=== PATIENT | female | born 1965 | race Caucasian/White ===

== ENCOUNTER 2019-11-22 19:20 | Emergency (ER) | payer OTHER ==
--- NOTE | 2019-11-22 19:33 | PDOC ---
Rapid Medical Evaluation Time Seen by Provider: 11/22/19 19:23 Medical Evaluation: 11/22/19 19:24 CC: here for fb removal from foot (broken sewing needle) x 1 week sent by RAYMOND kelly. no hx diabetes, no c/o increased swelling or redness, on po abx (prophy) exam: no visabel FB, tender to sole and base of 3-4th toe of left foot, no erythema or edema, no streaking Plan: covid, and consult compensation analyst Discharge Disposition - Diagnosis Foreign body in foot - Referrals - Patient Instructions - Post Discharge Activity
[2019-11-22 19:41] VITALS: BP 157/97; PULSE 98; TEMP 97.9; BMI 27.3
--- NOTE | 2019-11-22 19:58 | PDOC ---
History of Present Illness - General Chief Complaint: Foreign Body (FB) Stated Complaint: OBJECT IN FOOT Time Seen by Provider: 11/22/19 19:23 History Source: Patient Exam Limitations: No Limitations Past History - Travel History Traveled outside of the country in the last 30 days: No Close contact w/someone who was outside of country & ill: No - Medical History Allergies/Adverse Reactions: Allergies Allergy/AdvReac Type Severity Reaction Status Date / Time Sulfa (Sulfonamide Allergy Verified 11/27/19 10:05 Antibiotics) Home Medications: Ambulatory Orders Cefazolin [Ancef -] 500 mg PO QID 11/27/19 Fenofibrate 160 mg PO DAILY 11/27/19 Levothyroxine [Synthroid -] 125 mcg PO DAILY 11/27/19 COPD: No Hypercholesterolemia: Yes Thyroid Disease: Yes (hypothyroid) Other medical history: "Methadone maintenance" - Reproductive History Is Patient Now?: No - Psycho-Social/Smoking History Smoking History: Never smoked Review of Systems - Review of Systems Able to Perform ROS?: Yes Comments:: 11/22/19 21:50 CONSTITUTIONAL: Absent: fever, chills, diaphoresis, generalized weakness, malaise, loss of appetite HEENT: Absent: rhinorrhea, nasal congestion, throat pain, throat swelling, difficulty swallowing, mouth swelling, ear pain, eye pain, visual Changes CARDIOVASCULAR: Absent: chest pain, loss of consciousness, palpitations, irregular heart rate, peripheral edema RESPIRATORY: Absent: cough, shortness of breath, dyspnea with exertion, orthopnea, wheezing, stridor, hemoptysis GASTROINTESTINAL: Absent: abdominal pain, abdominal distension, nausea, vomiting, diarrhea, constipation, melena, hematochezia GENITOURINARY: Absent: dysuria, frequency, urgency, hesitancy, hematuria, flank pain, genital pain MUSCULOSKELETAL: Absent: myalgia, arthralgia, joint swelling SKIN: Absent: rash, itching, pallor HEMATOLOGIC/IMMUNOLOGIC: Absent: easy bleeding, easy bruising, lymphadenopathy, frequent infections ENDOCRINE: Absent: unexplained weight gain, unexplained weight loss, heat intolerance, cold intolerance NEUROLOGIC: Absent: headache, focal weakness or paresthesias, dizziness, unsteady gait, seizure, mental status changes, bladder or bowel incontinence PSYCHIATRIC: Absent: anxiety, depression, suicidal or homicidal ideation, hallucinations. Is the patient limited Stateless proficient: No *Physical Exam - Vital Signs Last Vital Signs Temp Pulse Resp BP Pulse Ox 97.9 F 98 H 20 157/97 99 11/22/19 19:30 11/22/19 19:30 11/22/19 19:30 11/22/19 19:30 11/22/19 19:30 - Physical Exam 11/22/19 21:50 GENERAL: Well developed, well nourished. Awake and alert. No acute distress. HEENT: Normocephalic, atraumatic. PERRLA, EOMI. No conjunctival pallor. Sclera are non- icteric. Moist mucous membranes. Oropharynx is clear. NECK: Supple. Full ROM. No JVD. Carotid pulses 2+ and symmetric, without bruits. No thyromegaly. No lymphadenopathy. CARDIOVASCULAR: Regular rate and rhythm. No murmurs, rubs, or gallops. Distal pulses are 2+ and symmetric. PULMONARY: No evidence of respiratory distress. Lungs clear to auscultation bilaterally. No wheezing, rales or rhonchi. ABDOMINAL: Soft. Non-tender. Non-distended. No rebound or guarding. No organomegaly. Normoactive bowel sounds. MUSCULOSKELETAL Normal range of motion at all joints. No bony deformities or tenderness. No CVA tenderness. EXTREMITIES: No cyanosis. No clubbing. No edema. No calf tenderness. SKIN: Warm and dry. Normal capillary refill. No rashes. No jaundice. NEUROLOGICAL: Alert, awake, appropriate. Cranial nerves 2-12 intact. No deficits to light touch and temperature in face, upper extremities and lower extremities. No motor deficits in the in face, upper extremities and lower extremities. Normoreflexic in the upper and lower extremities. Normal speech. Toes are down-going bilaterally. Gait is normal without ataxia. PSYCHIATRIC: Cooperative. Good eye contact. Appropriate mood and affect. Medical Decision Making - Medical Decision Making 11/22/19 21:[address] Delgadillo x2, First call placed approximately 45 minutes ago from [facility] provider 11/22/19 23:04 2 more calls were placed to Dr. Wong with no callback. Wound does not look infected at this time. There is a foreign body in the base of the left fourth toe. We will make patient nonweightbearing, have her continue her Keflex. Area of swelling was marked to determine worsening cellulitis. Strict return precautions given for streaking. I discussed the physical exam findings, ancillary test results and final diagnoses with the patient. I answered all of the patient's questions. The patient was satisfied with the care received and felt comfortable with the discharge plan and treatment plan. The Patient agrees to follow up with the primary care physician/specialist within 24-72 hours. Return precautions were given. Discharge - Discharge Information Problems reviewed: Yes Clinical Impression/Diagnosis: Foreign body in foot Qualifiers: Encounter type: initial encounter Laterality: left Qualified Code(s): S90.852A - Superficial foreign body, left foot, initial encounter Condition: Stable Disposition: HOME - Admission No - Follow up/Referral Referrals: Mayco Hopkins MD [Primary Care Provider] - - Patient Discharge Instructions Patient Printed Discharge Instructions: DI for Cellulitis -- Adult Additional Instructions: You were seen for the foreign body in your foot. There does not appear to be evidence of cellulitis at this time. You were swabbed for COVID today. Please use the crutches and remain nonweightbearing until you can follow-up with podiatry for removal of the foreign body. Follow-up with podiatry tomorrow. Return to the ER if you have worsening swelling, pain, redness or streaking to the area if you have any changes in your symptoms. - Post Discharge Activity
== END 2019-11-22 23:22 | disposition home or self-care (01) ==
LOC: JER 19:20
DX: S90.852A Superficial foreign body, left foot, initial encounter (principal)
CPT/HCPCS: 73630-TC-LT; 99284-25; U0003

== ENCOUNTER 2019-11-28 07:36 | Day surgery (SDC) | payer OTHER ==
[2019-11-27 10:13] VITALS: BMI 28.3
== END 2019-11-28 09:50 | disposition home or self-care (01) ==
LOC: FASU 07:36
PROVIDERS: ATTEND Podiatrist Foot Surgery
PROC: 0JCR0ZZ Extirpation of Matter from Left Foot Subcutaneous Tissue and Fascia, Open Approach (ICD-10-PCS; principal; 2019-11-28)
DX: Z53.8 Procedure and treatment not carried out for other reasons (principal); M79.5 Residual foreign body in soft tissue